=== PATIENT | female | born 2000 | race Caucasian/White ===

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

== ENCOUNTER 2020-08-24 06:25 | Day surgery (SDC) | payer OTHER ==
[~2020-08-24 06:25] MED LIST changes: +MECLIZINE HCL25 MG PO; +MULTI VITAMIN1 EACH PO; +PROZAC20 MG PO; +VITAMIN D5000 UNI1 PO
[2020-08-24] MEDS ORDERED: SERTRALINE HCL100 MG PO (06:44)
--- NOTE | 2020-08-24 08:15 | NUR ---
08/24/20 0815 Glenda Akins 0808 PT ARRIVED TO PACU ON 3L VIA NC PT ASLEEP ON LEFT SIDE AND RESP EVEN AND UNLABORED. VSS.
--- NOTE | 2020-08-24 09:18 | NUR ---
PATIENT BACK IN DAY SURGERY ROOM FROM PACU DUE TO DROWSINESS. PATIENT AWAKENS TO VOICE, BUT UNABLE TO STAY AWAKE. DENIES PAIN. VS CHECKED. CALL LIGHT PLACED NEXT TO PATIENT. LIGHTS DIMMED. PATIENT SLEEPING.
--- NOTE | 2020-08-24 10:05 | NUR ---
PT ALERT, ORIENTED AND SUPPORTED BY SIG OTHER MARY. PT'S FIRST SCOPE-ALL QUESTIONS ASKED ANSWERED. MARY WILL REMAIN FOR DC. PT REQUESTED PRAYER, WILL FOLLOW
--- NOTE | 2020-08-24 10:12 | NUR ---
PATIENT AWAKENED FOR VS CHECK. STILL DROWSY. CALL LIGHT WITHIN REACH.
--- NOTE | 2020-08-24 13:36 | NUR ---
1030: PATIENT MORE AWAKE. STATES WOULD LIKE TO GO HOME. DISCHARGE INSTRUCTIONS GIVEN TO PATIENT. PATIENT ASSISTED OOB. GAIT STEADY. PATIENT GETTING DRESSED. 1100: PATIENT DISCHARGED TO HOME VIA WHEELCHAIR WITH BOYFRIEND.
--- NOTE | 2020-08-24 16:33 | OR ---
[facility] [address] [place], [place] [address] Signed DATE OF OPERATION: 08/24/2020 SURGEON: Cecil Don MD PREOPERATIVE DIAGNOSES: 1. diarrhea. 2. Constipation. 3. Rectal bleeding. 4. Paternal grandfather with colon cancer at age 92. POSTOPERATIVE DIAGNOSES: Unremarkable colonoscopy. PROCEDURES: Colonoscopy with cold biopsies of the terminal ileum, right colon, transverse colon, left colon, sigmoid colon and rectum. ESTIMATED BLOOD LOSS: None. INDICATIONS: Hayley is a 19-year-old young lady, who asked to see me for a colonoscopy. She went to see her area field person, Dr. Miguel in 2019. She was having early satiety and vomiting. Her workup was negative including her EGD. More recently, she had a change in bowel habits with diarrhea over the last few months. She is also having constipation. She has intermittent rectal bleeding. She had been to her client experience manager for a full negative exam. Her paternal grandfather also had colon cancer at age 92. No family history of inflammatory bowel disease. In the office, I gave Hayley and her boyfriend a booklet on colonoscopy. We had reviewed the nature of that test along with the risks including, but not limited to gas bloating, crampy abdominal pain, bleeding, perforation requiring surgery, and missed diagnosis. We also discussed the need for IV conscious sedation. She had expressed understanding and wished to proceed. PROCEDURE NOTE: Hayley was taken into our endoscopy suite and placed in the left lateral decubitus position. She was given IV sedation with 9 mg of Versed and 150 mcg of fentanyl. A digital rectal exam was performed and this was unremarkable. Specifically, no external hemorrhoids. Good sphincter tone. The adult colonoscope was introduced and advanced all around into the cecum under direct visualization of camera without difficulty. Her prep was quite excellent. We could easily see the appendiceal orifice and the ileocecal Electronically Signed By: CECIL DON MD 08/24/20 1633 PATIENT NAME: HAYLEY ROSADO OPERATIVE REPORT DATE OF : 00 REPORT #: [id number] PHYSICIAN: CECIL DON MD PCP: FREDERICK MARIE MD REPORT IS CONFIDENTIAL AND NOT TO BE RELEASED WITHOUT AUTHORIZATION [facility] [address] [place], [place] [address] Signed valve. We turned the camera and went up into the terminal ileum around 10-15 cm. It appeared quite healthy. We went ahead and took cold biopsies of the terminal ileum. As the scope was withdrawn, we took cold biopsies in the right colon, transverse colon, left colon, sigmoid colon, and rectum. We saw no pathology throughout the entire colon or rectum. Upon retroflexion of the scope, there was no additional pathology noted above the anal canal. After this, the gas was suctioned out and colonoscope removed. Hayley tolerated the procedure quite well. RECOMMENDATIONS: I will see Hayley back in my office in 7 to 14 days to review her results. Cecil Don MD ALB/MODL /[id number] cc: Frederick Saleh MD Copies: KARTHIKEYAN SALEH MD ~ Electronically Signed By: CECIL DON MD 08/24/20 1633 PATIENT NAME: HAYLEY ROSADO OPERATIVE REPORT DATE OF : 00 REPORT #: [id number] PHYSICIAN: CECIL DON MD PCP: FREDERICK MARIE MD REPORT IS CONFIDENTIAL AND NOT TO BE RELEASED WITHOUT AUTHORIZATION
--- NOTE | 2020-08-25 11:26 | PATH ---
[facility] [address] [place], [place] [address] Signed SPECIMEN(S): A TERMINAL ILEUM SPECIMEN(S): B ASCENDING SPECIMEN(S): C TRANSVERSE SPECIMEN(S): D DESCENDING SPECIMEN(S): E SIGMOID SPECIMEN(S): F RECTUM SPECIMEN SOURCE: A. TERMINAL ILEUM B. ASCENDING C. TRANSVERSE D. DESCENDING E. SIGMOID F. RECTUM CLINICAL HISTORY: Rectal bleeding; diarrhea; constipation. Postop diagnosis: Unremarkable colonoscopy MICROSCOPIC DESCRIPTION: Histologic sections of all submitted blocks are examined by light microscopy. These findings, together with the gross examination, support the pathologic diagnosis. FINAL PATHOLOGIC DIAGNOSIS: A. Terminal ileum, biopsy: - Focal active ileitis. - Negative for granulomas, dysplasia, or malignancy. B. Colon, ascending, biopsy: - Colonic mucosa with no histopathologic abnormality. - Negative for active, chronic, or microscopic colitis. - Negative for dysplasia or malignancy. C. Colon, transverse, biopsy: - Colonic mucosa with no histopathologic abnormality. - Negative for active, chronic, or microscopic colitis. - Negative for dysplasia or malignancy. D. Colon, descending, biopsy: - Colonic mucosa with no histopathologic abnormality. - Negative for active, chronic, or microscopic colitis. - Negative for dysplasia or malignancy. E. Colon, sigmoid, biopsy: - Colonic mucosa with no histopathologic abnormality. PATIENT NAME: TIGRE ROSADO PATHOLOGY DATE OF : 00 REPORT #: [id number] PHYSICIAN: ORION PATHOLOGY PCP: BUSHRA MARIE MD REPORT IS CONFIDENTIAL AND NOT TO BE RELEASED WITHOUT AUTHORIZATION [facility] [address] [place], [place] [address] Signed - Negative for active, chronic, or microscopic colitis. - Negative for dysplasia or malignancy. F. Colon, rectum, biopsy: - Rectal mucosa with no histopathologic abnormality. - Negative for active or chronic proctitis. - Negative for dysplasia or malignancy. COMMENT: Focal active inflammation is present in terminal ileum biopsy. There is no evidence of chronic injury including architectural distortion or lamina propria lymphoplasmacytosis. Infectious organisms and viral cytopathic changes are not seen on HE stain. The finding is nonspecific but the differential diagnosis includes infection and medication (NSAID)-induced injury. Clinical correlation required. NAL:cml:C2NR GROSS DESCRIPTION: Six specimens are received in six containers, labeled "DR." A. The specimen, labeled "DR, 1," and designated on the requisition "terminal ileum," is received in formalin and consists of two clement soft tissue fragments that measure 0.3 cm in greatest dimension. The specimen is entirely submitted in cassette (A1). B. The specimen, labeled "DR, 2," and designated on the requisition "ascending colon," is received in formalin and consists of one clement soft tissue fragment that measures 0.4 cm in greatest dimension. The specimen is entirely submitted in cassette (B1). C. The specimen, labeled "DR, 3," and designated on the requisition "transverse colon," is received in formalin and consists of one clement soft tissue fragment that measures 0.4 cm in greatest dimension. The specimen is entirely submitted in cassette (C1). D. The specimen, labeled "DR, 4," and designated on the requisition "descending colon," is received in formalin and consists of one clement soft tissue fragment that measures 0.3 cm in greatest dimension. The specimen is entirely submitted in cassette (D1). E. The specimen, labeled "DR, 5," and designated on the requisition "sigmoid colon," is received in formalin and consists of one clement soft tissue fragment that measures 0.3 cm in greatest dimension. The specimen is entirely submitted in cassette (E1). F. The specimen, labeled "DR, 6," and designated on the requisition "rectum," PATIENT NAME: TIGRE ROSADO PATHOLOGY DATE OF : 00 REPORT #: [id number] PHYSICIAN: ORION MINA PCP: BUSHRA MARIE MD REPORT IS CONFIDENTIAL AND NOT TO BE RELEASED WITHOUT AUTHORIZATION [facility] [address] [place], [place] [address] Signed is received in formalin and consists of one clement soft tissue fragment that measures 0.3 cm in greatest dimension. The specimen is entirely submitted in cassette (F1). AT (under the direct supervision of a pathologist) The Gross Description was prepared using a voice recognition system. The report was reviewed for accuracy; however, sound-alike word errors, addition and/or deletions may occur. If there is any question about this report, please contact Client Services. PERFORMING LABORATORY: The technical component was performed by [facility], [address] [place] [id number] (Abattoir Manager: Kaylie Camarena MD; CLIA# [id number]). Professional interpretation was performed by [facility], [facility], [address] [address] (CLIA# [id number]). Diagnostician: Josy López MD Pathologist Electronically Signed 08/25/2020 Copies: ~ PATIENT NAME: TIGRE ROSADO PATHOLOGY DATE OF : 00 REPORT #: [id number] PHYSICIAN: ORION MINA PCP: BUSHRA MARIE MD REPORT IS CONFIDENTIAL AND NOT TO BE RELEASED WITHOUT AUTHORIZATION
== END 2020-08-24 11:03 | disposition home or self-care (01) ==
LOC: OPS 06:25 → DS 06:25 → OPS 06:45
PROVIDERS: ATTEND Colon & Rectal Surgery
PROC: 0DBL8ZX Excision of Transverse Colon, Via Natural or Artificial Opening Endoscopic, Diagnostic (ICD-10-PCS; 2020-08-24)
PROC: 0DBN8ZX Excision of Sigmoid Colon, Via Natural or Artificial Opening Endoscopic, Diagnostic (ICD-10-PCS; 2020-08-24)
PROC: 0DBP8ZX Excision of Rectum, Via Natural or Artificial Opening Endoscopic, Diagnostic (ICD-10-PCS; 2020-08-24)
PROC: 0DBB8ZX Excision of Ileum, Via Natural or Artificial Opening Endoscopic, Diagnostic (ICD-10-PCS; principal; 2020-08-24 06:45)
DX: K62.5 Hemorrhage of anus and rectum (principal); K59.09 Other constipation; K52.9 Noninfective gastroenteritis and colitis, unspecified; E66.9 Obesity, unspecified; Z80.0 Family history of malignant neoplasm of digestive organs
CPT/HCPCS: 84703; 88305; 99153; G0500; J2250; J3010; J7121

== ENCOUNTER 2020-10-24 14:18 | Emergency (ER) | payer OTHER ==
[~2020-10-24] VITALS: Ht 160 cm; Wt 86.2 kg
[~2020-10-24 14:18] MED LIST changes: +SERTRALINE HCL100 MG PO
[2020-10-24] MEDS ORDERED: ESCITALOPRAM OX10 MG PO (15:03)
== END 2020-10-24 15:34 | disposition home or self-care (01) ==
LOC: ED 14:18
DX: R04.0 Epistaxis (principal); D64.9 Anemia, unspecified; Z79.899 Other long term (current) drug therapy
CPT/HCPCS: 99283

== ENCOUNTER 2021-01-17 18:56 | Emergency (ER) | payer OTHER ==
[~2021-01-17] VITALS: Ht 160 cm; Wt 81.7 kg
[~2021-01-17 18:56] MED LIST changes: +ESCITALOPRAM OX10 MG PO
[2021-01-17] MEDS ORDERED: FLUOXETINE HCL20 MG PO (21:54)
[2021-01-17] MEDS ORDERED: PRAZOSIN HCL1 MG PO (21:55)
--- NOTE | 2021-01-19 21:27 | EKG ---
[facility] [address] [facility] [place], [place] [address] Signed Normal sinus rhythm with sinus arrhythmia Normal ECG No previous ECGs available Confirmed by DIOGO MATHEW DO ([id number]) on 01/19/2021 9:26:50 PM Electronically Signed By: DIOGO MATHEW DO 01/19/212126 PATIENT NAME: TIGRE ROSADO Electrocardiogram DATE OF : 00 PHYSICIAN: DIOGO MATHEW DO REPORT #: [id number] REPORT IS CONFIDENTIAL AND NOT TO BE RELEASED WITHOUT AUTHORIZATION
== END 2021-01-17 21:58 | disposition home or self-care (01) ==
LOC: ED 18:56
DX: M25.511 Pain in right shoulder (principal); D64.9 Anemia, unspecified; J45.909 Unspecified asthma, uncomplicated; Z79.899 Other long term (current) drug therapy
CPT/HCPCS: 71045; 93005; 93010; 96372; 99283-25; J1885

== ENCOUNTER 2021-06-21 18:19 | Emergency (ER) | payer OTHER ==
[~2021-06-21] VITALS: Ht 160 cm; Wt 77.1 kg
[~2021-06-21 18:19] MED LIST changes: +FLUOXETINE HCL20 MG PO; +PRAZOSIN HCL1 MG PO
== END 2021-06-21 22:50 | disposition home or self-care (01) ==
LOC: ED 18:19
DX: S83.92XA Sprain of unspecified site of left knee, initial encounter (principal); J45.909 Unspecified asthma, uncomplicated; D64.9 Anemia, unspecified; Z79.899 Other long term (current) drug therapy; X50.9XXA Other and unspecified overexertion or strenuous movements or postures, initial encounter
CPT/HCPCS: 73560; 99283-25

== ENCOUNTER 2021-11-03 17:03 | Emergency (ER) | payer OTHER ==
[~2021-11-03] VITALS: Ht 160 cm; Wt 76.7 kg
[2021-11-03] MEDS ORDERED: CYCLOBENZAPRINE10 MG PO (22:26)
== END 2021-11-03 23:10 | disposition home or self-care (01) ==
LOC: ED 17:03
DX: S16.1XXA Strain of muscle, fascia and tendon at neck level, initial encounter (principal); D64.9 Anemia, unspecified; Z79.899 Other long term (current) drug therapy; Y04.8XXA Assault by other bodily force, initial encounter
CPT/HCPCS: 70450; 72125; 96372; 99284-25; J1885; J2270

== ENCOUNTER 2022-03-26 13:07 | Emergency (ER) | payer OTHER ==
[~2022-03-26] VITALS: Ht 160 cm; Wt 81.8 kg
[~2022-03-26 13:07] MED LIST changes: +CYCLOBENZAPRINE10 MG PO
[2022-03-26] MEDS ORDERED: PREDNISONE20 MG PO (13:49)
== END 2022-03-26 14:05 | disposition home or self-care (01) ==
LOC: ED 13:07
DX: J45.901 Unspecified asthma with (acute) exacerbation (principal); B34.9 Viral infection, unspecified; D64.9 Anemia, unspecified; Z79.899 Other long term (current) drug therapy
CPT/HCPCS: 87502; 99283; J7512; U0003

== ENCOUNTER 2022-04-03 19:43 | Emergency (ER) | payer OTHER ==
[~2022-04-03] VITALS: Ht 160 cm; Wt 80.4 kg
[~2022-04-03 19:43] MED LIST changes: +PREDNISONE20 MG PO
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
== END 2022-04-03 23:10 | disposition home or self-care (01) ==
LOC: ED 19:43
DX: R45.851 Suicidal ideations (principal); J45.909 Unspecified asthma, uncomplicated; D64.9 Anemia, unspecified; Z20.822 Contact with and (suspected) exposure to COVID-19
CPT/HCPCS: 36415; 80053; 81003; 84443; 84703; 85025; 99285; G0480; U0003

== ENCOUNTER 2023-12-02 17:25 | Emergency (ER) | payer OTHER ==
[~2023-12-02] VITALS: Ht 160 cm; Wt 76.0 kg
--- OUTSIDE RECORDS SUMMARY | 2023-12-02 17:31 | XMS ---
PreManage Notification: TIGRE ROSADO Security Hand Router Operator Events No recent Security Events currently on file CRITERIA MET - [facility] - 2 Visits in 30 Days CARE PROVIDERS -, [facility] Dentist: Executive Marketing Assistant [facility] PHONE: [phone] -[place]- Dentist: Executive Marketing Assistant [facility] PHONE: [phone] MARLEY MUNROE Physician Group Home Supervisor Current PHONE: Unknown SEN VIDALES [facility] Current PHONE: Unknown Laure has no Care Guidelines for this patient. Fabi VISIT COUNT (12 MO.) 2 [facility] TOTAL 2 NOTE: Visits indicate total known visits. ED/UCC VISIT TRACKING (12 MO.) 12/02/2023 17:25 [facility] [place] TYPE: Emergency COMPLAINT: - COUGH 12/02/2023 11:41 [facility] [place] TYPE: Emergency COMPLAINT: - COUGH INPATIENT VISIT TRACKING (12 MO.) No inpatient visits to display in this time frame [id number]
[2023-12-02] MEDS ORDERED: VENTOLIN HFA18 GM INH (18:13)
[2023-12-02] MEDS ORDERED: ONDANSETRON ODT4 MG PO (18:14)
[2023-12-02] MEDS ORDERED: METHYLPREDNISOLO4 M1 PO (19:43)
[2023-12-02] MEDS ORDERED: QVAR REDIHALE10.6 GM INH (19:43)
[2023-12-02] MEDS ORDERED: predniSONE 20 MG TAB PO ONE (19:45)
[2023-12-02 20:14] VITALS: BP 136/82
== END 2023-12-02 20:06 | disposition home or self-care (01) ==
LOC: ED 17:25
DX: O99.512 Diseases of the respiratory system complicating pregnancy, second trimester (principal); J06.9 Acute upper respiratory infection, unspecified; J45.998 Other asthma; Z3A.19 19 weeks gestation of pregnancy
CPT/HCPCS: 99283; J7512

== ENCOUNTER 2025-02-10 12:27 | Emergency (ER) | payer OTHER ==
[~2025-02-10] VITALS: Ht 160 cm; Wt 68.2 kg
[~2025-02-10 12:27] MED LIST changes: +METHYLPREDNISOLO4 M1 PO; +ONDANSETRON ODT4 MG PO; +QVAR REDIHALE10.6 GM INH; +VENTOLIN HFA18 GM INH
[2025-02-10] MEDS ORDERED: IBLOOD GLUCOSE TEST STRIP 1 EA TEST XX ONE (13:00)
[2025-02-10 13:10] LABS: BASOPHILS 0.2 % (0.1-1.2); EOSINOPHILS 0.7 % (0.7-5.8); LYMPHOCYTES 13.4 % (19.3-51.7); MCH 26.4 PG (25.6-32.2); MCHC 32.0 g/dL (32.2-35.5); MCV 82.4 fL (79.4-94.8); MONOCYTES 5.1 % (4.7-12.5); NEUTROPHILS 80.3 % (34.0-71.1); RBC 4.55 M/uL (3.93-5.22)
[2025-02-10 13:29] LABS: ALT (SGPT) 18 U/L (14-59); AST (SGOT) 13 U/L (15-37); GLOMERULAR FILTRATION RATE,EST 129 mL/min (>60); PROTEIN, TOTAL 8.1 g/dL (6.4-8.2); UREA NITROGEN 10 mg/dL (7-18)
[2025-02-10 14:33] VITALS: BP 96/51
--- NOTE | 2025-02-11 06:01 | EKG ---
[facility] [address] [place] [address] Signed Normal sinus rhythm Normal ECG When compared with ECG of 17-JAN-2021 21:18, No significant change was found Confirmed by SCOT QUAN MD ([id number]) on 02/11/2025 6:01:45 AM Electronically Signed By: SCOT QUAN 02/11/25 0601 PATIENT NAME: TIGRE ROSADO Electrocardiogram DATE OF : [birth year] PHYSICIAN: SCOT QUAN REPORT #: [id number] REPORT IS CONFIDENTIAL AND NOT TO BE RELEASED WITHOUT AUTHORIZATION
== END 2025-02-10 14:40 ==
LOC: ED 12:27
PROVIDERS: Emergency Medicine
DX: R55 Syncope and collapse (principal)
CPT/HCPCS: 36415; 80053; 83735; 84484; 84703; 85025; 93005; 93010; 99284

== ENCOUNTER 2025-03-26 14:40 | Emergency (ER) | payer OTHER ==
[~2025-03-26] VITALS: Ht 160 cm; Wt 61.2 kg
--- OUTSIDE RECORDS SUMMARY | ~2025-03-26 | XMS | Continuity of Care Document ---
Demographics + + + | Address | [address] | | | [place] [address] | + + + | Preferred Language | Unknown | + + + | Marital Status | Never | + + + | Druze Affiliation | Unknown | + + + | Race | White | + + + | Ethnic Group | Not or | + + + Author + + + | Author | [facility] | + + + | Organization | [facility] | + + + | Address | [address] | | | [place] [address] | + + + | Phone | | + + + Care Team Providers + + + + | Care Bankruptcy Attorney Name | Role | Phone | + + + + Unavailable | Unavailable | + + + + Unavailable | Unavailable | + + + + Allergies No information. Encounters No information. Functional Status No information. Immunizations No information. Medications No information. Problems + + + + | date | description | facility | + + + + | 2025-02-10 00:00 | Syncope | [facility] | | | [facility] | + + + + Procedures No information. Results/Labs +--------+--------+ +---------+--------+---------+ | test | date | facility | value | unit | notes | +--------+--------+ +---------+--------+---------+ + + | Result panel 1 | + + + + + +---------+ + + | WBC # Bld | 2025-02-10 | | 11.28 | (missing) | (missing) | | Auto | 13:00:07 | [facility] | | | | + + + +---------+ + + + + | Result panel 2 | + + + + + +--------+ + + | Lymphocytes | 2025-02-10 | | 13.4 | (missing) | (missing) | | NFr Bld | 13:00:07 | [facility] | | | | | Auto [facility] | | | | + + + +--------+ + + + + | Result panel 3 | + + + + + +-------+ + + | Monocytes | 2025-02-10 | | 5.1 | (missing) | (missing) | | NFr Bld Auto | 13:00:07 | [facility] | | | | | | | - [facility] | | | | | [facility] | | | | + + + +-------+ + + + + | Result panel 4 | + + + + + +-------+ + + | Eosinophil | 2025-02-10 | | 0.7 | (missing) | (missing) | | NFr Bld Auto | 13:00:07 | [facility] | | | | + + + +-------+ + + + + | Result panel 5 | + + + + + +-------+ + + | Basophils | 2025-02-10 | | 0.2 | (missing) | (missing) | | NFr Bld Auto | 13:00:07 | [facility] | | | | + + + +-------+ + + + + | Result panel 6 | + + + + + +------+---------+ + | Glucose | 2025-02-10 | | 87 | mg/dL | (missing) | | SerPl-mCnc | 13:00:07 | [facility] | | | | + + + +------+---------+ + + + | Result panel 7 | + + + + + +------+---------+ + | BUN | 2025-02-10 | | 10 | mg/dL | (missing) | | Patricia-Keyshawn | 13:00:07 | [facility] | | | | + + + +------+---------+ + + + | Result panel 8 | + + + + + +--------+---------+ + | Creat | 2025-02-10 | | 0.59 | mg/dL | (missing) | | SerPmadalyn-mCrodrigo | 13:00:07 | [facility] | | | | + + + +--------+---------+ + + + | Result panel 9 | + + + + + +-------+ + + | eGFRcr | 2025-02-10 | | 129 | (missing) | (missing) | | SerPlBld | 13:00:07 | [facility] | | | | | CKD-EPI 2020 | [facility] | | | | + + + +-------+ + + + + | Result panel 10 | + + + + + +---------+ + + | BUN/Creat | 2025-02-10 | | 16.94 | (missing) | (missing) | | SerPl | 13:00:07 | [facility] | | | | + + + +---------+ + + + + | Result panel 11 | + + + + + +-------+ + + | Sodium | 2025-02-10 | | 140 | (missing) | (missing) | | Ser[facility] | 13:00:07 | [facility] | | | | + + + +-------+ + + + + | Result panel 12 | + + + + + +--------+ + + | RBC # Bld | 2025-02-10 | | 4.55 | (missing) | (missing) | | Auto | 13:00:07 | [facility] | | | | + + + +--------+ + + + + | Result panel 13 | + + + + + +-------+ + + | Potassium | 2025-02-10 | | 3.6 | (missing) | (missing) | | SerPl-sCnc | 13:00:07 | [facility] | | | | + + + +-------+ + + + + | Result panel 14 | + + + + + +-------+ + + | Chloride | 2025-02-10 | | 103 | (missing) | (missing) | | SerPl-sCnc | 13:00:07 | [facility] | | | | + + + +-------+ + + + + | Result panel 15 | + + + + + +------+ + + | CO2 | 2025-02-10 | | 25 | (missing) | (missing) | | SerPl-sCnc | 13:00:07 | [facility] | | | | + + + +------+ + + + + | Result panel 16 | + + + + + +--------+ + + | Anion Gap | 2025-02-10 | | 15.6 | (missing) | (missing) | | SerPl | 13:00:07 | [facility] | | | | | Calculated.4 | [facility] I[facility]-s[facility]nc | [facility] | | | | + + + +--------+ + + + + | Result panel 17 | + + + + + +-------+---------+ + | Calcium | 2025-02-10 | | 9.3 | mg/dL | (missing) | | SerPl-mCnc | 13:00:07 | [facility] | | | | + + + +-------+---------+ + + + | Result panel 18 | + + + + + +-------+---------+ + | Magnesium | 2025-02-10 | | 1.9 | mg/dL | (missing) | | Omer | 13:00:07 | [facility] | | | | + + + +-------+---------+ + + + | Result panel 19 | + + + + + +-------+ + + | Prot | 2025-02-10 | | 8.1 | (missing) | (missing) | | SerPmadalyn-Keyshawn | 13:00:07 | [facility] | | | | + + + +-------+ + + + + | Result panel 20 | + + + + + +-------+ + + | Albumin | 2025-02-10 | | 4.2 | (missing) | (missing) | | SerPl-[facility] | 13:00:07 | [facility] | | | | + + + +-------+ + + + + | Result panel 21 | + + + + + +-------+ + + | Globulin | 2025-02-10 | | 3.9 | (missing) | (missing) | | Ser-mCnc | 13:00:07 | [facility] | | | | + + + +-------+ + + + + | Result panel 22 | + + + + + +--------+ + + | | 2025-02-10 | | 1.08 | (missing) | (missing) | | Albumin/Glob | 13:00:07 | [facility] | | | | SerPl [facility] | | | | + + + +--------+ + + + + | Result panel 23 | + + + + + +--------+ + + | Hgb | 2025-02-10 | | 12.0 | (missing) | (missing) | | Bld-mCrodrigo | 13:00:07 | [facility] | | | | + + + +--------+ + + + + | Result panel 24 | + + + + + +-------+---------+ + | Bilirub | 2025-02-10 | | 1.3 | mg/dL | (missing) | | SerPl-mCnc | 13:00:07 | [facility] | | | | + + + +-------+---------+ + + + | Result panel 25 | + + + + + +------+ + + | AST | 2025-02-10 | | 13 | (missing) | (missing) | | SerPl-cCnc | 13:00:07 | [facility] | | | | + + + +------+ + + + + | Result panel 26 | + + + + + +------+ + + | ALT | 2025-02-10 | | 18 | (missing) | (missing) | | SerPl-cCnc | 13:00:07 | [facility] | | | | + + + +------+ + + + + | Result panel 27 | + + + + + +------+ + + | ALP | 2025-02-10 | | 73 | (missing) | (missing) | | SerPl-cCnc | 13:00:07 | [facility] | | | | + + + +------+ + + + + | Result panel 28 | + + + + + +--------+ + + | Troponin I | 2025-02-10 | | <4.0 | (missing) | (missing) | | SerPl | 13:00:07 | [facility] | | | | | HS-mCnc [facility] | | | | + + + +--------+ + + + + | Result panel 29 | + + + + + + + + + | HCG SerPl | 2025-02-10 | | NEGATIVE | (missing) | (missing) | | Ql | 13:00:07 | [facility] | | | | + + + + + + + + + | Result panel 30 | + + + + + +--------+ + + | Hct VFr.DF | 2025-02-10 | | 37.5 | (missing) | (missing) | | Bld Auto | 13::07 | [facility] | | | | | | - | | | | | | | [facility] | | | | + + + +--------+ + + + + | Result panel 31 | + + + + + +--------+ + + | RBC Auto | 2025-02-10 | | 82.4 | (missing) | (missing) | | | 13::07 | [facility] | | | | + + + +--------+ + + + + | Result panel 32 | + + + + + +--------+ + + | MCH RBC Qn | 2025-02-10 | | 26.4 | (missing) | (missing) | | Auto | 13:00:07 | [facility] | | | | + + + +--------+ + + + + | Result panel 33 | + + + + + +--------+ + + | MCHC RBC | 2025-02-10 | | 32.0 | (missing) | (missing) | | Auto-EntMCnc | 13:00:07 | [facility] | | | | + + + +--------+ + + + + | Result panel 34 | + + + + + +-------+ + + | Platelet # | 2025-02-10 | | 379 | (missing) | (missing) | | Bld Auto | 13:00:07 | [facility] | | | | + + + +-------+ + + + + | Result panel 35 | + + + + + +--------+ + + | Neutrophils | 2025-02-10 | | 80.3 | (missing) | (missing) | | NFr Bld | 13:00:07 | [facility] | | | | | Auto | [facility] | | | | + + + +--------+ + + Social History +--------+ + + | date | description | facility | +--------+ + + Vital Signs + + + +---------+ | date | measurement | value | units | + + + +---------+ | 2025-02-10 00:00 | BMI | 26.6 | kg/m2 | + + + +---------+ | 2025-02-10 00:00 | BP_diastolic | 51 | mmHg | + + + +---------+ | 2025-02-10 00:00 | BP_systolic | 96 | mmHg | + + + +---------+ | 2025-02-10 00:00 | heart_rate | 70 | /min | + + + +---------+ | 2025-02-10 00:00 | height_metric | 160.02 | cm | + + + +---------+ | 2025-02-10 00:00 | height_standard | 63 | in | + + + +---------+ | 2025-02-10 00:00 | o2_saturation | 100 | % | + + + +---------+ | 2025-02-10 00:00 | respiration_rate | 18 | /min | + + + +---------+ | 2025-02-10 00:00 | | 98.2 | F | | | temperature_standar | | | | | d | | | + + + +---------+ | 2025-02-10 00:00 | weight_metric | 68.181 | kg | + + + +---------+ | 2025-02-10 00:00 | weight_standard | 150.312 | lb | + + + +---------+"
[2025-03-26 15:23] LABS: BASOPHILS 0.1 % (0.1-1.2); EOSINOPHILS 1.0 % (0.7-5.8); LYMPHOCYTES 27.0 % (19.3-51.7); MCH 25.5 PG (25.6-32.2); MCHC 31.2 g/dL (32.2-35.5); MCV 81.6 fL (79.4-94.8); MONOCYTES 7.4 % (4.7-12.5); NEUTROPHILS 64.1 % (34.0-71.1); RBC 4.24 M/uL (3.93-5.22)
[2025-03-26 15:46] LABS: ALT (SGPT) 16.0 U/L (14-59); AST (SGOT) 12.0 U/L (15-37); GLOMERULAR FILTRATION RATE,EST 126.0 mL/min (>60); PROTEIN, TOTAL 8.7 g/dL (6.4-8.2); UREA NITROGEN 5.0 mg/dL (7-18)
[2025-03-26 16:56] LABS: BLOOD/HGB, URINE NEGATIVE (Negative); KETONE, URINE NEGATIVE (Negative); LEUK ESTERASE, URINE SMALL (negative); NITRITE, URINE POSITIVE (negative)
[2025-03-26 17:02] LABS: BACTERIA, URINE 2+ /hpf (negative); CASTS, URINE NONE SEEN \\lpf; CRYSTALS, URINE NONE SEEN (0-1+); EPITHELIAL CELLS, URINE SQUAMOUS 4+ /lpf (0-1+); REFLEX CULTURE, URINE No (No)
[2025-03-26 17:45] VITALS: BP 123/75
[2025-03-26] MEDS ORDERED: HYDROmorphone HCL 1 MG/ML SYR IV ONE (18:15)
[2025-03-26 18:29] LABS: BLOOD/HGB, URINE NEGATIVE (Negative); KETONE, URINE NEGATIVE (Negative); LEUK ESTERASE, URINE SMALL (negative); NITRITE, URINE NEGATIVE (negative)
[2025-03-26 18:38] LABS: BACTERIA, URINE RARE /hpf (negative); CASTS, URINE NONE SEEN \\lpf; CRYSTALS, URINE NONE SEEN (0-1+); EPITHELIAL CELLS, URINE SQUAMOUS 1+ /lpf (0-1+); REFLEX CULTURE, URINE No (No)
== END 2025-03-26 19:03 | disposition home or self-care (01) ==
LOC: ED 14:40
PROVIDERS: Emergency Medicine
DX: K52.9 Noninfective gastroenteritis and colitis, unspecified (principal); N83.202 Unspecified ovarian cyst, left side; F43.10 Post-traumatic stress disorder, unspecified
CPT/HCPCS: 36415; 74177; 80053; 81001; 83690; 84703; 85025; 96374; 99284-25; J1171; Q9967